=== PATIENT | male | born 1945 ===

== ENCOUNTER 2019-12-11 11:59 | Emergency (ER) | payer MEDICARE ==
--- NOTE | 2019-12-11 15:13 | EDM.PDOC ---
ED HPI GENERAL MEDICAL PROBLEM - General Chief Complaint: Respiratory Problem Stated Complaint: SORE THROAT Time Seen by Provider: 12/11/19 14:53 Source of Information: Reports: Patient, RN Notes Reviewed History Limitations: Reports: No Limitations - History of Present Illness INITIAL COMMENTS - FREE TEXT/NARRATIVE: Patient is a 74-year-old male who presents to the ED for evaluation of his dry cough and sore throat. Patient notes he developed the symptoms 2 days ago, he states with a sore throat mainly on the right side of his throat. With a dry intermittent hacking cough that has not produced any sputum. He has not had any fevers or chills, he is not having any shortness of breath, or any chest pain. He states that he does not have any prior heart or lung issues, but does take losartan and metformin on a regular basis. He states that it is a little bit difficult to swallow due to the pain. He notes that he was tested for COVID 3 months ago, and this was negative. He states he has no seasonal allergies that he is aware of. Other than this he has no complaints. Throat Pain Score (Numeric/FACES): 5 - Related Data Allergies Allergy/AdvReac Type Severity Reaction Status Date / Time No Known Allergies Allergy Verified 12/11/19 12:15 Home Meds: Home Meds Losartan [Cozaar] 50 mg PO DAILY 12/11/19 [History] metFORMIN [Glucophage XR] 500 mg PO DAILY 12/11/19 [History] Past Medical History Cardiovascular History: Reports: Hypertension Endocrine/Metabolic History: Reports: Diabetes, Type II Social & Family History - Family History Family Medical History: Noncontributory - Tobacco Use Smoking Status *Q: Never Smoker Second Hand Smoke Exposure: No - Caffeine Use Caffeine Use: Reports: Coffee - Recreational Drug Use Recreational Drug Use: No ED ROS GENERAL - Review of Systems Review Of Systems: Comprehensive ROS is negative, except as noted in HPI. ED EXAM, GENERAL - Physical Exam Exam: See Below Exam Limited By: No Limitations General Appearance: Alert, WD/WN, No Apparent Distress Eye Exam: Bilateral Eye: EOMI, Normal Inspection, PERRL Ears: Normal External Exam, Normal Canal, Hearing Grossly Normal, Normal TMs Nose: Normal Inspection Throat/Mouth: Normal Inspection, Normal Lips, Normal Teeth, Normal Gums, Normal Oropharynx, Normal Voice, No Airway Compromise Head: Atraumatic, Normocephalic Neck: Normal Inspection, Supple, Tender Lateral (on the right anterior neck just under mandible.) Respiratory/Chest: No Respiratory Distress, Lungs Clear, Normal Breath Sounds, No Accessory Muscle Use, Chest Non-Tender Cardiovascular: Normal Peripheral Pulses, Regular Rate, Rhythm, No Edema, No Murmur Peripheral Pulses: 2+: Radial (L), Radial (R) Extremities: Normal Inspection, Normal Capillary Refill Neurological: Alert, Oriented, Normal Cognition, No Motor/Sensory Deficits Psychiatric: Normal Affect, Normal Mood Skin Exam: Warm, Dry, Intact, Normal Color, No Rash Course - Vital Signs Last Recorded V/S: Last Vital Signs Temp 97.9 F 12/11/19 12:10 Pulse 101 H 12/11/19 12:10 Resp 20 12/11/19 12:10 BP 161/81 H 12/11/19 12:10 Pulse Ox 94 L 12/11/19 12:10 - Orders/Labs/Meds Orders: Active Orders 24 hr Category Date Time Status CORONAVIRUS COVID-19 PCR PHL Routine Lab 12/11/19 15:37 Received CULTURE STREP A CONFIRMATION [RM] Stat Lab 12/11/19 15:37 Results STREP SCRN A RAPID W CULT CONF [RM] Stat Lab 12/11/19 15:37 Results - Re-Assessments/Exams Free Text/Narrative Re-Assessment/Exam: 12/11/19 15:12 Patient presents to the ED for the evaluation of a sore throat and a dry cough. He will have a strep swab done in this facility, we will do a state coronavirus test, and a baseline chest x-ray for initial evaluation. This does sound like more of a viral upper respiratory infection in nature. 12/11/19 16:10 The patient's chest x-ray is negative for any sort of consolidative processes that be suggestive of pneumonia. Strep screen is negative, but sent for culture for confirmation. He be discharged home with general recommendations. Departure - Departure Time of Disposition: 16:10 Disposition: Home, Self-Care 01 Condition: Good Clinical Impression: Viral URI with cough Pharyngitis Qualifiers: Pharyngitis/tonsillitis etiology: unspecified etiology Qualified Code(s): J02.9 - Acute pharyngitis, unspecified - Discharge Information *PRESCRIPTION DRUG MONITORING PROGRAM REVIEWED*: No *COPY OF PRESCRIPTION DRUG MONITORING REPORT IN PATIENT RACHANA: No Instructions: Viral Respiratory Infection, [id number], Pharyngitis, [id number] Referrals: PCP,Not In Area [Primary Care Provider] - Forms: ED Department Discharge, ED Return to Work/School Form Additional Instructions: You were seen in the ER today for your cough and sore throat. Your chest x-ray showed no signs of pneumonia at this time. Your oxygen levels were great at 97% on room air. Your strep swab was negative, but this will be sent for culture for confirmation, you will be called in 24 to 48 hours if you should need antibiotics. The rapid strep screen is not a perfect test, sometimes the bacteria can be missed on the initial swab. At this time we did test you for COVID-19. We ask that you self-quarantine until you receive your results from the [facility]. You have been given a work note to reflect this. Swabs are sent from this facility on a daily basis, at 2:30 PM, you should expect up to 3-5 business days for positive or negative results. However you may receive results earlier than this. We are doing our best to call as soon as we get results from the [place] [facility]. It is recommended at this time that you go home and self quarantine and try to limit exposure to other as much as possible until you get your results from the [facility] test. Please try to increase your oral fluid intake, and eat multiple small meals throughout the day, to keep yourself healthy. You may take 500 mg Tylenol every hours 6 hours for pain/fever relief. Do not exceed 4000 mg Tylenol in a 24-hour time span. However, running a fever is your body's natural response to illness, and it allows the body to develop antibodies to disease, we are recommending trying to limit the use of Tylenol as much as possible to allow your body's natural immune response. Sepsis Event Note (ED) - Evaluation Sepsis Screening Result: No Definite Risk - Focused Exam Vital Signs: Vital Signs Temp Pulse Resp BP Pulse Ox 12/11/19 12:10 97.9 F 101 H 20 161/81 H 94 L - My Orders Last 24 Hours: My Active Orders 12/11/19 15:37 CORONAVIRUS COVID-19 PCR PHL Routine CULTURE STREP A CONFIRMATION [] Stat STREP SCRN A RAPID W CULT CONF [RM] Stat - Assessment/Plan Last 24 Hours: My Active Orders 12/11/19 15:37 CORONAVIRUS COVID-19 PCR PHL Routine CULTURE STREP A CONFIRMATION [RM] Stat STREP SCRN A RAPID W CULT CONF [RM] Stat
--- NOTE | 2019-12-11 15:42 | CR ---
Chest: Portable view of the chest was obtained. Comparison: No previous chest imaging is available. Heart size and mediastinum are within normal limits for portable technique. Lungs are clear with no acute parenchymal change. Bony structures are grossly intact. Impression: 1. Nothing acute is seen on portable chest x-ray. Diagnostic code #1 This report was dictated in MDT
== END 2019-12-11 16:26 | disposition home or self-care (01) ==
LOC: JD.ED 11:59
DX: J02.9 Acute pharyngitis, unspecified (principal); I10 Essential (primary) hypertension; E11.9 Type 2 diabetes mellitus without complications; Z79.84 Long term (current) use of oral hypoglycemic drugs; Z79.899 Other long term (current) drug therapy; Z20.828 Contact with and (suspected) exposure to other viral communicable diseases
CPT/HCPCS: 71045; 87081; 87430; 99283; U0002; 99282